=== PATIENT | male | born 1965 | race Caucasian/White ===

== ENCOUNTER 2025-03-30 11:21 | Emergency (ER) | payer SELFPAY | END 2025-03-30 12:39 | disposition home or self-care (01) | LOC: BURERS 11:21 | DX: K04.7 Periapical abscess without sinus (principal); K02.9 Dental caries, unspecified; K08.89 Other specified disorders of teeth and supporting structures; F17.210 Nicotine dependence, cigarettes, uncomplicated | CPT/HCPCS: 64400; J3490 ==